=== PATIENT | female | born 1945 | race Caucasian/White ===

== ENCOUNTER 2021-10-11 19:19 | Inpatient (IN) | payer MEDICARE ==
[~2021-10-11] VITALS: Ht 160 cm; Wt 42.8 kg
[2021-10-11] MEDS ORDERED: BUDESONIDE EC3 MG PO (21:52)
[2021-10-11] MEDS ORDERED: CEFDINIR300 MG PO (21:52)
[2021-10-11] MEDS ORDERED: LOPRESSOR 25 MG25 MG PO (21:53)
[2021-10-11] MEDS ORDERED: TIKOSYN125 MCG PO (21:53)
[2021-10-11] MEDS ORDERED: ELIQUIS5 MG PO (21:53)
[2021-10-11] MEDS ORDERED: CELEXA 20MG TAB20 MG PO (21:54)
[2021-10-11] MEDS ORDERED: LORAZEPAM0.5 MG PO (21:54)
[2021-10-11] MEDS ORDERED: OMEPRAZOLE20 MG PO (21:54)
[2021-10-11] MEDS ORDERED: ATORVASTATIN CA20 MG PO (21:54)
[2021-10-12 00:49] LABS: BUN/CREATININE RATIO 25 (0-10)
[2021-10-12 07:43] LABS: HEMOGLOBIN 10.3 gm/dl (12.3-15.3); RED BLOOD COUNT 3.29 M/UL (4.00-5.10); WHITE BLOOD COUNT 11.1 K/UL (4.5-11.0)
[2021-10-12 08:02] LABS: BUN/CREATININE RATIO 28 (0-10)
[2021-10-12] MEDS ORDERED: PROTONIX 40 MG40 M1 PO (14:45)
[2021-10-12] MEDS ORDERED: DRONABINOL5 MG PO (14:45)
[2021-10-12] MEDS ORDERED: APRISO0.375 GM PO (14:46)
[2021-10-12] MEDS ORDERED: ANORO ELLIPTA1 EACH INH (14:47)
[2021-10-13 02:45] LABS: HEMOGLOBIN 10.7 gm/dl (12.3-15.3); RED BLOOD COUNT 3.45 M/UL (4.00-5.10)
[2021-10-13 02:58] LABS: BUN/CREATININE RATIO 28 (0-10)
[2021-10-14 04:07] LABS: HEMOGLOBIN 9.7 gm/dl (12.3-15.3); RED BLOOD COUNT 3.11 M/UL (4.00-5.10)
[2021-10-14 04:55] LABS: BUN/CREATININE RATIO 24 (0-10)
[2021-10-15 03:02] LABS: HEMOGLOBIN 7.6 gm/dl (12.3-15.3); RED BLOOD COUNT 2.5 M/UL (4.00-5.10); WHITE BLOOD COUNT 7.6 K/UL (4.5-11.0)
[2021-10-15 03:39] LABS: HEMOGLOBIN 8.6 gm/dl (12.3-15.3); RED BLOOD COUNT 2.77 M/UL (4.00-5.10); WHITE BLOOD COUNT 8.1 K/UL (4.5-11.0)
[2021-10-15 04:01] LABS: BUN/CREATININE RATIO 18 (0-10)
[2021-10-15 04:57] LABS: HEMOGLOBIN 10.5 gm/dl (12.3-15.3); WHITE BLOOD COUNT 9.8 K/UL (4.5-11.0)
[2021-10-15 04:58] LABS: RED BLOOD COUNT 3.37 M/UL (4.00-5.10)
[2021-10-15 05:19] LABS: BUN/CREATININE RATIO 22 (0-10)
== END 2021-10-15 10:13 | DRG 871 ==
LOC: PROG CARE 19:19
PROVIDERS: Internal Medicine; Internal Medicine Pulmonary Disease; ADMIT Internal Medicine
PROC: 0BB38ZX Excision of Right Main Bronchus, Via Natural or Artificial Opening Endoscopic, Diagnostic (ICD-10-PCS; 2021-10-14)
PROC: 0BJL8ZZ Inspection of Left Lung, Via Natural or Artificial Opening Endoscopic (ICD-10-PCS; 2021-10-14)
PROC: 0B9C8ZX Drainage of Right Upper Lung Lobe, Via Natural or Artificial Opening Endoscopic, Diagnostic (ICD-10-PCS; principal; 2021-10-14 07:43)
DX: B37.7 Candidal sepsis (principal); J96.21 Acute and chronic respiratory failure with hypoxia; Z20.822 Contact with and (suspected) exposure to COVID-19; E43 Unspecified severe protein-calorie malnutrition; J15.9 Unspecified bacterial pneumonia; J69.0 Pneumonitis due to inhalation of food and vomit; Z68.1 Body mass index [BMI] 19.9 or less, adult; C34.90 Malignant neoplasm of unspecified part of unspecified bronchus or lung; C79.51 Secondary malignant neoplasm of bone; C78.7 Secondary malignant neoplasm of liver and intrahepatic bile duct; J98.19 Other pulmonary collapse; I50.22 Chronic systolic (congestive) heart failure; J44.0 Chronic obstructive pulmonary disease with (acute) lower respiratory infection; I42.9 Cardiomyopathy, unspecified; R64 Cachexia; J98.11 Atelectasis; R13.10 Dysphagia, unspecified; M19.90 Unspecified osteoarthritis, unspecified site; I11.0 Hypertensive heart disease with heart failure; I25.10 Atherosclerotic heart disease of native coronary artery without angina pectoris; R62.7 Adult failure to thrive; R53.81 Other malaise; E03.9 Hypothyroidism, unspecified; I48.0 Paroxysmal atrial fibrillation; Z79.01 Long term (current) use of anticoagulants; Z86.73 Personal history of transient ischemic attack (TIA), and cerebral infarction without residual deficits; Z51.5 Encounter for palliative care; Z88.0 Allergy status to penicillin; Z87.891 Personal history of nicotine dependence; Z85.828 Personal history of other malignant neoplasm of skin; Z90.49 Acquired absence of other specified parts of digestive tract; Z98.890 Other specified postprocedural states; Z98.891 History of uterine scar from previous surgery; Z95.5 Presence of coronary angioplasty implant and graft
CPT/HCPCS: 36415; 71045; 80048; 80053; 80202; 82550; 82553; 83735; 84484; 85025; 85027; 87070; 87205; 88341; 88342; 92526; 92610; 93005; 94640; 94664; 94667; 94668; 94760; J0692; J1642; J1650; J2270; J2543; J2704; J2930; J3370; J3475; J7030; J7040; J7050